=== PATIENT | female | born 2000 | race Two or more races ===

== ENCOUNTER 2023-09-06 11:30 | Emergency (ER) | payer OTHER ==
[~2023-09-06] VITALS: Ht 162.6 cm; Wt 59.0 kg
[2023-09-06 15:32] LABS: HEMOGLOBIN 10.8 g/dL (12.0-15.00); MEAN CELL VOLUME 79.5 fL (80.00-100.00); MEAN CORPUSCULAR HEMOGLOBIN 25.2 pg (27.00-32.0); MEAN CORPUSCULAR HGB CONC 31.6 g/dl (32.0-36.0); PLATELET COUNT 405 K/uL (150-450); RED BLOOD COUNT 4.28 M/uL (4.00-6.00)
== END 2023-09-06 19:17 | disposition home or self-care (01) ==
LOC: ER 11:30
DX: J45.998 Other asthma (principal); J10.1 Influenza due to other identified influenza virus with other respiratory manifestations; Z20.822 Contact with and (suspected) exposure to COVID-19; Z88.0 Allergy status to penicillin